=== PATIENT | female | born 1940 | race Two or more races ===

== ENCOUNTER → 2018-04-14 | Outpatient (CLI) | payer OTHER | END | disposition home or self-care (01) | LOC: LAB 11:02 | DX: I10 Essential (primary) hypertension (principal); E11.9 Type 2 diabetes mellitus without complications; E03.8 Other specified hypothyroidism; E78.2 Mixed hyperlipidemia ==

== ENCOUNTER 2018-05-01 12:05 | Outpatient (CLI) | payer OTHER | END 2018-05-01 12:11 | disposition home or self-care (01) | LOC: RAD 12:05 | DX: M12.89 Other specific arthropathies, not elsewhere classified, multiple sites (principal); M19.90 Unspecified osteoarthritis, unspecified site ==

== ENCOUNTER → 2018-07-18 10:50 | Outpatient (CLI) | payer OTHER | END | disposition home or self-care (01) | LOC: LAB 10:50 | DX: I10 Essential (primary) hypertension (principal); E11.9 Type 2 diabetes mellitus without complications; E03.8 Other specified hypothyroidism; E78.2 Mixed hyperlipidemia ==

== ENCOUNTER 2018-07-25 13:25 | Outpatient (CLI) | payer OTHER | END 2018-07-25 13:39 | disposition home or self-care (01) | LOC: RAD 13:25 | DX: J44.9 Chronic obstructive pulmonary disease, unspecified (principal) ==

== ENCOUNTER → 2019-03-02 | Day surgery (SDC) | payer OTHER ==
[~2019-03-02] VITALS: Ht 162.6 cm; Wt 54.4 kg
== END | disposition home or self-care (01) ==
LOC: SURH 03-01 05:20 → O/R 03-01 05:20 → SURH 03-01 07:00 → EDSTATUS 03-01 08:00 → SURH 03-01 08:00 → O/R 03-01 14:39 → SURH 03-01 14:39 → O/R 08:00 → CIR.AMB 08:00 → O/R 11:19 → SURH 11:19
DX: C50.112 Malignant neoplasm of central portion of left female breast (principal); E11.649 Type 2 diabetes mellitus with hypoglycemia without coma

== ENCOUNTER → 2019-03-07 | Emergency (ER) | payer OTHER ==
[~2019-03-07] VITALS: Ht 157.5 cm; Wt 61.2 kg
== END | disposition home or self-care (01) ==
LOC: ER 17:38
DX: E11.649 Type 2 diabetes mellitus with hypoglycemia without coma (principal)

== ENCOUNTER → 2019-08-22 09:19 | Outpatient (CLI) | payer OTHER | END | disposition home or self-care (01) | LOC: LAB 09:19 | DX: D64.89 Other specified anemias (principal); E11.65 Type 2 diabetes mellitus with hyperglycemia ==

== ENCOUNTER 2019-10-28 10:48 | Emergency (ER) | payer OTHER ==
[~2019-10-28] VITALS: Ht 157.5 cm; Wt 54.4 kg
== END 2019-10-28 16:06 | disposition home or self-care (01) ==
LOC: ER 10:48
DX: R42 Dizziness and giddiness (principal)

== ENCOUNTER 2019-12-17 11:40 | Outpatient (CLI) | payer OTHER | END 2019-12-17 11:46 | disposition home or self-care (01) | LOC: SONOGRAMA 11:40 | DX: C50.812 Malignant neoplasm of overlapping sites of left female breast (principal); C50.411 Malignant neoplasm of upper-outer quadrant of right female breast; N60.11 Diffuse cystic mastopathy of right breast; N60.12 Diffuse cystic mastopathy of left breast ==

== ENCOUNTER 2019-12-27 09:05 | Outpatient (CLI) | payer OTHER | END 2019-12-27 09:10 | disposition home or self-care (01) | LOC: LAB 09:05 | DX: D53.8 Other specified nutritional anemias (principal); R74.0 Nonspecific elevation of levels of transaminase and lactic acid dehydrogenase [LDH]; C50.412 Malignant neoplasm of upper-outer quadrant of left female breast; C57.00 Malignant neoplasm of unspecified fallopian tube ==

== ENCOUNTER 2020-01-31 16:32 | Emergency (ER) | payer OTHER ==
[~2020-01-31] VITALS: Ht 154.9 cm; Wt 63.5 kg
== END 2020-01-31 20:47 | disposition home or self-care (01) ==
LOC: ER 16:32
DX: R55 Syncope and collapse (principal); E11.649 Type 2 diabetes mellitus with hypoglycemia without coma

== ENCOUNTER 2020-02-04 09:10 | Outpatient (CLI) | payer OTHER | END 2020-02-04 09:49 | disposition home or self-care (01) | LOC: RAD 09:10 | DX: M12.89 Other specific arthropathies, not elsewhere classified, multiple sites (principal); M46.47 Discitis, unspecified, lumbosacral region; R51 Headache; R41.2 Retrograde amnesia ==